=== PATIENT | female | born 1970 | race Hispanic/Latino ===

== ENCOUNTER 2018-05-08 07:01 | Emergency (ER) | payer OTHER, SELFPAY ==
[2018-05-08] MEDS ORDERED: HYDROcodone/Acetaminophen 10/325 mg Tablet ONE (07:50)
[2018-05-08] MEDS ORDERED: Ibuprofen 800 MG TAB ONE (07:51)
--- NOTE | 2018-05-08 08:19 | CT ---
CT THORACIC SPINE: 05/08/2018 HISTORY/TECHNIQUE: A spiral CT of the thoracic spine is done following trauma. Axial slices are acquired and then coron al and reconstructions are done. FINDINGS: No fracture, dislocation, or disk space narrowing is seen. The paravertebral soft tissues show no sw elling. The visible portions of the adjacent lungs show no pneumothorax or pleural effusion. There are some prominent bridging anterior osteophytes at T11-T12. At T10-T11, on slide #[phone], there is a ro unded structure just to the right of the aorta that may be a 1 cm lymph node. I see no significant n umbers of nodes above or below it. IMPRESSION: Minor arthritic changes, but no acute bony findings. POS: HOME
--- NOTE | 2018-05-08 08:23 | CT ---
CT CERVICAL SPINE: 05/08/2018 HISTORY/TECHNIQUE: A spiral CT of the cervical spine is performed following trauma. Axial slices are acquired and then coronal and sagittal reconstructions are done. FINDINGS: No fracture is seen at any level. There is no dislocation. The disk spaces seem normal in height. There is some loss of the normal cervical lordosis, which might be due to muscle spasm. The C1 to de ns distance is normal, and the soft tissues are normal in thickness. The C1 through C4 levels are unremarkable. At C4-C5 and C5-C6, there are posterior disk osteophyte complexes. These somewhat impinge on the the don sac, causing some mild central canal stenosis. The AP diameter at each of these levels is about 8 mm. There is severe right foraminal narrowing at C4-C5 as well. Below C6, there are no acute findings. The lung apices are clear. The soft tissues of the neck show no acute change. The thyroid seems generous in size, particularly the right lobe, but no focal mass is appreciated. An incidental finding is slight mucosal thickening on the right side of the sphenoi d sinus. IMPRESSION: 1. Mild loss of cervical lordosis; otherwise, no acute findings. 2. Posterior disk osteophyte complexes at C4-C5 and C5-C6, mildly narrowing the central canal to 8 m m in anterior-posterior diameter. POS: HOME
== END 2018-05-08 08:05 | disposition home or self-care (01) ==
LOC: BURERS 07:01
DX: S16.1XXA Strain of muscle, fascia and tendon at neck level, initial encounter (principal); S29.012A Strain of muscle and tendon of back wall of thorax, initial encounter; M47.813 Spondylosis without myelopathy or radiculopathy, cervicothoracic region; Z79.01 Long term (current) use of anticoagulants; V49.9XXA Car occupant (driver) (passenger) injured in unspecified traffic accident, initial encounter
CPT/HCPCS: 72125; 72128